=== PATIENT | female | born 1965 | race Caucasian/White ===

== ENCOUNTER 2021-11-24 05:40 | Inpatient (IN) ==
--- NOTE | 2021-11-07 11:53 | PAT Medication Instructions ---
Medication Instructions Date of Service November 07, 2021 Home Medications rosuvastatin 5 mg tablet 5 mg PO QAM multivitamin 1 tab PO QAM norethindrone acetate 1 mg-ethinyl estradiol 5 mcg tablet 1 tab PO QAM prednisone 20 mg tablet 20 mg PO UD Continue as directed prednisone 20 mg tablet 20 mg PO UD ASK your surgeon for instructions norethindrone acetate 1 mg-ethinyl estradiol 5 mcg tablet 1 tab PO QAM (continue as normal unless told otherwise by surgeon) DO NOT take the morning of surgery multivitamin 1 tab PO QAM Take morning of surgery With a small sip of water, OTHERWISE NOTHING TO EAT OR DRINK AFTER MIDNIGHT: rosuvastatin 5 mg tablet 5 mg PO QAM Other Notes If you have any questions please call us at [phone] or [phone] or [phone] or [phone]
--- NOTE | 2021-11-07 16:27 | History and Physical Report ---
DATE OF SERVICE: 11/24/2021. CHIEF COMPLAINT: Pelvic pain and pressure. Prolonged bleeding. HISTORY OF PRESENT ILLNESS: The patient is a 54-year-old nullip. Her general health is good. She i s on medicines for high cholesterol. She has problems with heavy vaginal bleeding. She had a period for well over a year where she was bleeding every 30 days including some premenstrual spotting. Her periods would last for over 7 days. She had 4-5 days of heavy bleeding where she was passing large clots, soaking over a pad an hour, was unable to leave the home because she is bleeding through her p ads and severe pressure and cramps. This has been present for over a year and getting progressively worse. She has also had pelvic pain and pressure. Severe pain with her periods, pelvic pressure and frequent urination. This has also been present and getting progressively worse for over a year. The se symptoms of pain and bleeding were evaluated with a transvaginal ultrasound, which was performed o n 05/16/2021. The uterus was 13 x 7.7 x 7.1 cm. There was a large fibroid uterus. There was no end ometrial linings seen. She had 2 distinct fibroids, one was 6.8 x 4.2 x 6.1 cm and the other fibroid was 4.7 x 4.6 x 5.0 cm. She is presently being scheduled for a total abdominal hysterectomy with pr eservation of the ovaries if possible; however, the patient has been informed if there is a small karli or on the ovaries, they will be removed, so her present preop was total abdominal hysterectomy with p reservation of both ovaries. PAST MEDICAL HISTORY: No known drug allergies. PAST SURGICAL HISTORY: She had a laser eye surgery. MEDICAL HISTORY: She is on medicine for elevated cholesterol. SOCIAL HISTORY: No smoking, no alcohol intake. She is employed. FAMILY HISTORY: Mother at age 77 of multiple myeloma. Father is 82, has end-stage Parkinson's and prostate cancer. She has one brother, age 55 in good health. REVIEW OF SYSTEMS: HEAD: No symptoms of frequent or severe headaches. EYES: No symptoms of blurred vision or double vision. EARS: No symptoms of frequent ear infection or difficulty hearing. NOSE: No symptoms of frequent nosebleeds or difficulty breathing through her nose. THROAT: No symptoms of frequent or severe sore throats or difficulty swallowing. RESPIRATORY SYSTEM: No history of asthma, chest pain, or shortness of breath. PHYSICAL EXAMINATION: GENERAL: Well-developed, well-nourished 54-year-old white female, alert, oriented x3, and cooperativ e, in no acute distress, appeared her stated age. EYES: Conjunctivae pink. Sclerae white, no evidence of jaundice. ENT: Ears had normal light reflex bilaterally. Nose had normal mucosa. Septum is midline. There w ere no polyps. Throat had no erythema or evidence of infection. Teeth are in good state of repair. HEAD: Normocephalic, normal distribution of hair. NECK: Supple. Trachea midline. Thyroid is not enlarged. There is no adenopathy appreciated. Both carotids are of good intensity. CHEST: Clear to auscultation and percussion. No wheezes, rales or rhonchi appreciated. HEART: Had regular rhythm. S1 and S2 are normal. BREASTS: Normal. ABDOMEN: Soft and nontender. Fibroid uterus was palpable abdominally up to the level of the umbilic us. PELVIC: Fibroid uterus filled the pelvis. Cervix was palpated and found to be normal and a bimanual examination revealed the upper limits of the fibroid at the level of the umbilicus. It was freely mo bile on pelvic exam. MUSCULOSKELETAL: Revealed no calf tenderness. IMPRESSION OF THIS CASE: Status post laser eye surgery, hypermenorrhea, pelvic pain, large symptomat ic fibroid uterus. Job ID: [id number]
--- NOTE | 2021-11-08 11:33 | Anesthesiology Consultation ---
Date of Service November 08, 2021 Assessment & Plan (1) Encounter for pre-operative examination: - check urine test am DOS. - assess respiratory status am DOS given recent respiratory illness, COVID negative. - Case discussed with Dr. Sapp who advised patient is acceptable risk to proceed, does not require additional evaluation or testing, to anesthesiologist assessment of respiratory status am DOS. - COVID screening: Per assessment on 11/08/2021: Travel screen negative, no known COVID-19 positive contacts or current COVID-19 related symptoms in past 2 weeks. Patient vaccinated. Surgeon arranging preop COVID testing, scheduled 11/22/2021. Awaiting results. Chart Review Chart Review: Acceptable Risk for Surgery and Patient seen in Pre Admission Testing Teaching & Discussion Pre-Anesthesia Teaching/Discussion Notes: Instructed NPO after midnight before surgery, except medications with 15 cc of water. Medication instructions provided according to the PAT guidelines. History Surgery Operation Date: 11/24/21 11:15 Proposed Procedures p Total Abdominal Hysterectomy - Uriel Nice MD Height/Weight Height: 5 ft 5 in Weight: 74.1 kg Allergies Allergy/AdvReac Type Severity Reaction Status Date / Time bee venom protein (honey bee) Allergy Severe Anaphylaxis Verified 11/06/21 09:17 Medications Home Medications Medication Instructions Recorded Confirmed Last Taken rosuvastatin 5 mg tablet 5 mg PO QAM 08/18/19 11/06/21 08/25/19 08:00 multivitamin 1 tab PO QAM 11/06/21 11/06/21 Unknown norethindrone acetate 1 mg-ethinyl 1 tab PO QAM 11/06/21 11/06/21 Unknown estradiol 5 mcg tablet prednisone 20 mg tablet 20 mg PO UD 11/06/21 11/06/21 Unknown Past Medical History Medical History Hyperlipidemia Patient denies h/o stroke, seizures, heart attack, heart failure, DM, HTN, blood clots or blood transfusions. Exercise / Class Metabolic Activity II 4-5 Yardwork/Stairs/Walk up hill (denies CP or SOB with 1 FOS) Past Family History Family History Other No family history of adverse response to anesthesia Past Surgical History Surgical History H/O eye surgery RT/LEFT LASER FOR "PRESSURE IN EYE" History of colonoscopy History of elective History of esophagogastroduodenoscopy (EGD) History of wisdom tooth extraction Past Anesthesia History No Hx of Anesthesia Complications and No Family Hx of Anesthesia Complications History of PONV No Hx of PONV and No Hx of Motion Sickness Social History Smoking Status: Former smoker tobacco type: cigarettes Do You Dip or Chew Tobacco: No Smoking End Date: QUIT OVER 20 YEARS AGO Hx Alcohol Use: No Hx Substance Use: No substance use type: does not use Review of Systems Snoring, denies witnessed apneas or sleep studies. Productive cough ongoing over past week, gradually improving. Post-nasal drip. Finishing prednisone course Rx by PCP, COVID negative. Patient denies chest pain, shortness of breath, dyspnea on exertion, fever, chills, or palpitations. Physical Exam Vital Signs Vitals BP 126/84 P 87 TEMP 99.0 SP02 98% on RA RESP 17 Physical Full cervical extension range of motion without pain Full TMJ range of motion TMD 3.5 finger breaths Mallampati Score 2 Dentition: intact, missing right lower side tooth; denies chipped or loose teeth, caps/crowns, implants or bridges Lungs: normal respiratory effort. Clear throughout to auscultation, no adventitious breath sounds Cardiac: regular rate and rhythm, no murmurs noted Carotid arteries: negative bruit bilat Lab Results Anesthesia Preop Results Results Anesthesia Widget: WBC 12.25 K/uL (4.8-10.8) H 11/08/21 Hgb 15.2 g/dL (12.0-16.0) 11/08/21 Hct 45.3 % (37-47) 11/08/21 Plt 420 K/uL (130-400) H 11/08/21 Na 137 mmol/L (136-145) 11/08/21 K 4.5 mmol/L (3.5-5.1) 11/08/21 Cl 103 mmol/L (98-107) 11/08/21 CO2 27 mmol/L (21-32) 11/08/21 BUN 13 mg/dl (6-23) 11/08/21 Creat 0.93 mg/dl (0.6-1.2) 11/08/21 Glucose Level 134 mg/dl (70-99(Fasting)) H 11/08/21 PT 10.0 Seconds (9.0-12.0) 11/08/21 PTT 24.9 Seconds (21.0-31.0) 11/08/21 INR 0.9 (0.9-1.1) 11/08/21 Blood Type B Positive 11/08/21 Antibody Screen NEGATIVE 11/08/21 Testing Electrocardiogram Date: 11/08/21 NSR, rate [address] abnormality
[2021-11-24] MEDS ORDERED: cefOXitin 2,000 MG in DEXTROSE 5% 50 ML IV SCH (06:00)
[2021-11-24] MEDS ORDERED: LR 500ML BOLUS, THEN 15ML/HR IV SCH (06:00)
[2021-11-24] MEDS ORDERED: ROCURONIUM BROMIDE 10 MG/ML 5 ML VIAL IV ONE ×2 (06:30→09:58)
[2021-11-24] MEDS ORDERED: PROPOFOL IV EMULSION 10 MG/ML 20 ML VIAL IV ONE (06:30)
[2021-11-24] MEDS ORDERED: fentaNYL citrate 100 MCG/2 ML VIAL ONE ×2 (06:31→09:58)
[2021-11-24] MEDS ORDERED: MoRPHine SULFATE PF 1 MG/ML 10 ML AMP/VIAL ONE (06:31)
[2021-11-24] MEDS ORDERED: MIDAZOLAM HCL 1 MG/ML 2ML VIAL ONE (06:31)
[2021-11-24] MEDS ORDERED: ePHEDrine sulfate 50 MG/ML AMP IV PRN ×2 (06:59→07:00)
[2021-11-24] MEDS ORDERED: ATROPINE SULFATE 0.1 MG/ML 10ML SYR IV PRN (06:59)
[2021-11-24] MEDS ORDERED: fentaNYL citrate 100 MCG/2 ML VIAL IV PRN (06:59)
[2021-11-24] MEDS ORDERED: ONDANSETRON INJ 2 MG/ML 2 ML VIAL IV PRN ×2 (06:59→07:00)
[2021-11-24] MEDS ORDERED: HYDROmorphone INJ 2 MG/ML SYR/VIAL IV PRN (06:59)
[2021-11-24] MEDS ORDERED: NALOXONE HCL 1 MG in SODIUM CHLORIDE 0.9% 1000ML 1,000 ML IV PRN (07:00)
[2021-11-24] MEDS ORDERED: LACTATED RINGER'S 500 ML IV PRN (07:00)
[2021-11-24] MEDS ORDERED: NALOXONE HCL 0.4 MG/1 ML VIAL/CARP IV PRN (07:00)
[2021-11-24] MEDS ORDERED: MoRPHine SULFATE 2 MG/ML CARP IV PRN (07:00)
[2021-11-24] MEDS ORDERED: MoRPHine SULFATE PF 1 MG/ML 10 ML AMP/VIAL INT SPINAL ONE (07:00)
[2021-11-24] MEDS ORDERED: NO NARCOTICS OR SEDATIVES SCH (07:00)
[2021-11-24] MEDS ORDERED: NALOXONE HCL 0.08 MG in SYRINGE 1.8 ML IV PRN (07:00)
[2021-11-24] MEDS ORDERED: diphenhydrAMINE 50 MG/ML VIAL IV PRN (07:00)
[2021-11-24] MEDS ORDERED: KETOROLAC 30 MG/ML VIAL IV PRN ×2 (07:00→15:32)
[2021-11-24] MEDS ORDERED: NALBUPHINE HCL INJ 10 MG/ML AMP IV PRN (07:00)
[2021-11-24] MEDS ORDERED: DC INTRASPINAL MORPHINE SCH (07:00)
[2021-11-24] MEDS ORDERED: SODIUM CHLORIDE 0.9% 1000ML 1,000 ML IV SCH (07:00)
[2021-11-24] MEDS ORDERED: BUPIVACAINE 0.5 % 5 MG/1 ML PF 10ML VIAL ONE (07:08)
--- NOTE | 2021-11-24 07:15 | History & Physical Bridge Note ---
Date of Service November 24, 2021 History & Physical Bridge Note I have examined the patient, reviewed the History & Physical and in the interval since the performance of the History & Physical I have noted the following changes of clinical significance: no changes noted
[2021-11-24] MEDS ORDERED: DEXAMETHASONE SOD INJ 4 MG/ML VIAL ONE (07:48)
[2021-11-24] MEDS ORDERED: ONDANSETRON INJ 2 MG/ML 2 ML VIAL ONE (07:48)
[2021-11-24] MEDS ORDERED: HYDROmorphone INJ 2 MG/ML SYR/VIAL ONE (07:49)
[2021-11-24] MEDS ORDERED: HEPARIN SOD (PORCINE) 1000 UNIT/ML ONE (07:52)
[2021-11-24] MEDS ORDERED: KETAMINE 50 MG/5 ML SYRINGE ONE (08:00)
[2021-11-24] MEDS ORDERED: GLYCOPYRROLATE 0.2 MG/ML VIAL ONE (08:01)
[2021-11-24] MEDS ORDERED: NEOSTIGMINE METHYLSULFATE 1 MG/ML 10ML VIAL ONE (08:01)
--- NOTE | 2021-11-24 10:42 | Post Operative Brief Note ---
Immediate Post Op Note v1 Date of Surgery November 24, 2021 Pre & Post Diagnosis Operation Date: 11/24/21 07:15 Pre-Op Diagnosis: large symptomatic fibroid uterus Post-Op Diagnosis: large symptomatic fibroid uterus I identified the patient and participated in the time-out.: Yes Procedure Operation Date: 11/24/21 07:15 Actual Procedures p Total Abdominal Hysterectomy(Not Applicable) - Uriel Nice MD Surgeon Uriel Nice MD Ice Handler none Estimated Blood Loss 200 Findings Consistent with Post-Op Diagnosis Drains Heath Catheter (16 bengali heath inserted before start of procedure by Mary Alice Small RN ) and Other Complications none Disposition Disposition: Recovery Room
--- NOTE | 2021-11-24 10:53 | XRay Report ---
KUB HISTORY: Status post surgery. Possible retained foreign body. INSTRUMENT COUNT COMPARISON: None. FINDINGS: Midline skin timbo of the lower abdomen and pelvis are noted. A radiopaque structure over lying the lower aspect of the staple line is suggestive of a surgical sponge. There is an adjacent sa fety pin. There are 4 retractor devices projecting over the abdomen and pelvis. There is an additiona l probable surgical sponge projected over the right upper thigh. Possible extraperitoneal air of the pelvis. No acute fracture. IMPRESSION: A surgical sponge projects over the midline pelvis. ACT 112: Negative or not required by law. The above report was generated using voice recognition software. It may contain grammatical, syntax o r spelling errors. Electronically signed by: Alvaro Carter M.D. 11/24/2021 10:52 AM
--- NOTE | 2021-11-24 11:51 | Anesthesiology Progress Note ---
Date of Service November 24, 2021 Anesthesia Post Procedure Vital Signs Vital Signs: Temp Pulse Pulse Resp BP Pulse Ox 11/24/21 11:45 85 13 134/79 96 11/24/21 11:35 37.3 C 76 14 124/72 97 11/24/21 11:30 87 16 132/82 96 11/24/21 11:20 91 H 12 123/77 95 11/24/21 11:10 91 H 14 107/77 97 11/24/21 11:02 36.6 C 96 H 14 126/89 97 11/24/21 06:06 37.1 C 95 H 20 155/80 H 98 Pain Intensity Abdomen: Pain Intensity: 4 Transfer of Care Handoff Completed per policy Notes Mental Status: alert / awake / arousable and participated in evaluation Patient Amnestic to Procedure: Yes Nausea / Vomiting: adequately controlled Pain: adequately controlled Airway Patency, RR, SpO2: stable & adequate BP & HR: stable & adequate Hydration State: stable & adequate Anesthetic Complications: no major complications apparent and Pt Satisfied with anesthetic care
--- NOTE | 2021-11-24 12:35 | Operative Report (OR) ---
DATE OF PROCEDURE: 11/24/2021 PROCEDURE: Total abdominal hysterectomy. INDICATIONS FOR SURGERY: Large symptomatic uterine fibroids. PREOPERATIVE DIAGNOSIS: Large symptomatic uterine fibroids. POSTOPERATIVE DIAGNOSIS: Large symptomatic uterine fibroids. PATHOLOGY: Pending. SURGEON: Tai Nice MD. TAR LEVELER: hotel assistant manager. ESTIMATED BLOOD LOSS: 200 mL. ANESTHESIA: General with spinal narcotics. DESCRIPTION OF PROCEDURE: The patient was brought to the OR table, correctly identified by cecelia rodgers nd evelio. Spinal narcotics were administered and general anesthesia. Perineum and vagina were painted with Betadine paint, draped in usual sterile fashion. Lower abdomen was painted with an alc ohol based sterilizing solution, was allowed to dry and then draped in the usual fashion. At this ti me, fibroid uterus was palpable up to the level of the umbilicus. A midline incision was made and carried down to the anterior fascia by sharp dissection. Hemostasis was secured by electrocauterization. Fascia was incised in the midline up towards the umbilicus and down to the pelvic brim. Recti muscles were carefully in the midline. Peritoneum was care fully raised and entered. The incision was then extended down to the dome of the bladder and up towa rds the umbilicus on the peritoneum. At this time, a large fibroid uterus with multiple fibroids and a lot of anatomical distortion was brought out through the incision. I brought it through an O'Conn or-O'Hooks self-retaining retractor and I used a retractor to expose the uterus, tubes, and ovarie s. I used about 6 packs to pack off the bowel. I used another blade to hold down the bladder. There was a lot of anatomical distortion in the cervix. The fibroids went down to the level of the c ervix. We first identified each round ligament and then tagged it with a chromic gut suture and then ligated it distal to that with a silk suture. This was done on both the right and left side and the round ligament was then also clamped proximally. After clamping both of the round ligaments, we cut down with electrocauterization. Made an incision above the vesicouterine fold and advanced the bladd er out of the operative field. We then started on the right side. I punched through the posterior leaf of the broad ligament and is olated the ovarian ligament and tube, clamped it close to the uterus distal, cut the adnexa off with electrocautery and then doubly ligated the stumps of the tube and ovarian ligament. First, I ligated with a transfixion suture chromic catgut, tied it and then another loop of chromic catgut distal to that for hemostasis. This was done on both the right and left side. At this time, hemostasis was go od. We then started to free up the fibroids with paying attention to the ones that were low on the cervix . We got them up to a safe position, pushed the bladder out of the operative field and then clamped the uterine vessels on both the right and left side. The uterine vessels on the right side were larg e and also went over the anterior portion of the lower cervix. I then doubly clamped the uterine ves sels on each side with a curved Nigel, cut with a stump, doubly ligated with a chromic gut suture, c auterized the ends and now I removed the fundus of the uterus and this consisted of all of the fibroi ds. I then grasped the remaining portion of the cervix with a double tooth tenaculum. We considered taking the cervix out at this time, but because of the large amount of vascularity on t he right side, which went right over the anterior portion of the cervix, we decided to leave a portio n of the cervix in. We then clamped the upper portion of the cervix with a curved Nigel on the left side, then carefully moved the vessels on the right side laterally, curved proximally. I then cut th e stumps on each side, removed the upper portion of the cervix, doubly ligated the stumps with a estate administrator antonio gut suture. We then had a wagner for the cervical os. Eventually, we were able to find that and t hen we did a continuous interlocking suture of heavy chromic catgut, which also incorporated the stum ps of the cardinal ligaments on each side into the cuff. Hemostasis was good. I did have to clamp t hat large vessel on the cervix distal to where we were working because of some bleeding and this with 1 suture created good hemostasis. We then used a Mariella drain with a safety pin, placed it into the vagina through the cervical openin g, brought down the round ligaments on either side, tied them to the stump of the cervix for support and then I reperitonealized the peritoneum on both the right and left side, tagging the ovaries up hi gh on the lateral pelvic wall, going from the right side to the center and then from the left side to the center and then tying the 2 sutures together. At this time, hemostasis was excellent. Peritone um was totally reperitonealized. We inspected all the bowels. Appendix was completely normal. We th en washed with a solution with heparin. Then, we did a careful anatomical approximation. The peritoneum was closed with a mattress suture of chromic catgut. PDS was used to close the fascia in a running fashion, PDS suture anchored at the top of the fascial defect and other one anchored at the bottom of the defect and run with wide lateral bites and tied to each other in the middle. Subc utaneous was approximated with a running plain, 4 mattress suture of nylons were used to help approxi mate the skin edges and then staple clips were used to finish the approximation. Following this, hem ostasis was good. Estimated blood loss 200 mL. Job ID: [id number]
[2021-11-24] MEDS ORDERED: MEPERIDINE HCL 50 MG/ML CARP IV PRN (15:32)
[2021-11-24] MEDS: D5W AND LACTATED RINGERS 1,000 ML IV SCH (20:20)
[2021-11-24] MEDS ORDERED: bisacodyL 5 MG TABEC PO PRN (20:33)
[2021-11-24] MEDS: DOCUSATE SODIUM 100 MG CAP PO SCH (21:46)
[2021-11-25] MEDS: D5W AND LACTATED RINGERS 1,000 ML IV SCH ×2 (01:44→08:55)
[2021-11-25] MEDS: IBUPROFEN 600 MG TAB PO PRN ×3 (03:18→12:33)
[2021-11-25] MEDS: oxyCODONE/ACETAMINOPHEN 5mg/325mg TAB PO PRN ×3 (03:19→14:14)
[2021-11-25] MEDS: DOCUSATE SODIUM 100 MG CAP PO SCH (07:38)
--- NOTE | 2021-11-25 12:05 | Obstetrical Progress Note ---
Date of Service November 25, 2021 Assessment & Plan Admission and Anticipated Discharge Date Admission Date: November 24, 2021 Subjective abdomen soft and non tender incision is clean and dry bandage removed no calf tenderness ambulating well vaginal bleeding scant hgb 15 starla drain removed Results & Data ([facility]) Vital Signs (Past 12 Hours) Vital Signs Temp Pulse Resp BP BP Pulse Ox 11/25/21 08:20 37 C 91 H 18 122/77 11/25/21 03:30 37 C 94 H 20 128/83 96 11/25/21 01:10 16 97 11/25/21 00:30 16 97
[2021-11-25 12:53] LABS: Hematocrit (blood only) 35.8 % (37-47); Hemoglobin 12.1 g/dL (12.0-16.0)
--- NOTE | 2021-11-25 16:21 | Discharge Summary (DS) ---
DATE OF DISCHARGE: 11/25/2021. The patient was admitted with a large symptomatic fibroid uterus up and to beyond the level of the um bilicus, which caused her a lot of pelvic pain and pressure and also a lot of irregular bleeding. Lilo bolton was on norethindrone 5 mg a day prior to surgery to stop the bleeding and to build up her hemoglobi n. The day of admission, she was taken to the OR where a midline incision was made due to the size of the uterus and a large fibroid uterus was removed with a moderate amount of difficulty due to anatom ical distortion of the large fibroids. Both ovaries at that time were preserved and I did leave a sm all piece of the cervix in due to a large sub-bladder varicosities. [place] drain was placed in the c ervical opening. Cervix was whipstitched open. Abdomen was reperitonealized. Postoperatively, she d id well. She remained afebrile. On her first postoperative day, she was ambulating well. She was pa ssing gas. She requested discharge. I pulled the [place] drain out. Checked she had no calf tendern ess. I removed the bandage. Incision was clean and dry. I talked to her about the usual postoperat dedrick instructions, called her in a prescription for Percocet and also gave her prescription for estrad iol 2 mg tablets. She was instructed to return to the office in about 4 days for removal of the reten tion sutures. Job ID: [id number]
== END 2021-11-25 15:06 | disposition home or self-care (01) | DRG 743 ==
LOC: ASU 05:40 → 4E1 10:49

== ENCOUNTER 2021-11-25 19:39 | Observation (INO) ==
[2021-11-25] MEDS ORDERED: oxyCODONE/ACETAMINOPHEN 5mg/325mg TAB PO PRN (19:52)
[2021-11-25] MEDS: LACTATED RINGER'S 1,000 ML IV SCH (19:56)
[2021-11-25] MEDS: ONDANSETRON INJ 2 MG/ML 2 ML VIAL IV PRN (19:58)
[2021-11-25] MEDS ORDERED: LACTATED RINGER'S 1,000 ML IV SCH (20:00)
[2021-11-25] MEDS: MEPERIDINE HCL 50 MG/ML CARP IV PRN (20:10)
[2021-11-25 20:13] LABS: Hematocrit (blood only) 36.5 % (37-47); Hemoglobin 12.5 g/dL (12.0-16.0)
--- NOTE | 2021-11-25 20:47 | History and Physical Report ---
DATE OF SERVICE: 11/25/2021 HISTORY OF PRESENT ILLNESS: She was admitted with nausea and vomiting. A 56-year-old nullip. [facility] al health is good. She is on meds for high blood pressure. She had hysterectomy on Saturday for sympt oms of heavy vaginal bleeding, pelvic pain and pressure. She had a large multifibroid uterus removed at that time through a midline abdominal incision. Postoperatively, she did well. Her postoperativ e hemoglobin was 12.0 and bleeding at the time of surgery was estimated to be about 200 mL. On her f irst postoperative day, which was Saturday, she was doing well and requested early discharge. A Penr ose drain was removed from the vagina. Her hemoglobin was checked. She was passing small amounts of gas and she was discharged on pain medication and estrogen replacement. She called then in the afte rnoon and said that after she got home, she started to experience projectile vomiting and a lot of na usea. She was readmitted to the hospital for IV fluids. ALLERGIES: No known drug allergies. PAST SURGICAL HISTORY: She had laser eye surgery. PAST MEDICAL HISTORY: She is on meds for elevated blood pressure. SOCIAL HISTORY: No smoking, no alcohol intake. She is employed. FAMILY HISTORY: Mother at 77 of multiple myeloma. Father is 82, has end-stage Parkinson's dise ase and prostate cancer. One brother at age 55 in good health. REVIEW OF SYSTEMS: HEAD: No symptoms of frequent or severe headaches. EYES: No symptoms of blurred vision or double vision. EARS: No symptoms of frequent ear infection or difficulty hearing. NOSE: No symptoms of frequent nosebleeds or difficulty breathing through her nose. PHYSICAL EXAMINATION: GENERAL: Well-developed, well-nourished female in moderate amount of distress. HEART: Had regular rhythm. S1 and S2 are normal. LUNGS: Clear to auscultation and percussion. CHEST: Clear to auscultation and percussion. ABDOMEN: Abdominal incision looked clean and dry. Abdomen was mildly distended. There was some mil d tenderness. Bowel sounds were hypoactive. PELVIS: Vaginal bleeding was minimal. EXTREMITIES: There was no calf tenderness. IMPRESSION OF THIS CASE: Ileus, status post hysterectomy for fibroids. Job ID: [id number]
[2021-11-25] MEDS: KETOROLAC 30 MG/ML VIAL IV PRN (21:42)
[2021-11-26] MEDS: ONDANSETRON INJ 2 MG/ML 2 ML VIAL IV PRN ×5 (00:02→22:10)
[2021-11-26] MEDS: MEPERIDINE HCL 50 MG/ML CARP IV PRN ×5 (00:02→22:10)
[2021-11-26] MEDS: LACTATED RINGER'S 1,000 ML IV SCH ×4 (03:30→21:33)
[2021-11-26] MEDS: KETOROLAC 30 MG/ML VIAL IV PRN (06:28)
[2021-11-26] MEDS: SIMETHICONE 80 MG CHEW PO SCH ×4 (07:48→20:49)
[2021-11-26] MEDS: DOCUSATE SODIUM 100 MG CAP PO SCH ×2 (11:10→20:49)
--- NOTE | 2021-11-26 11:38 | Obstetrical Progress Note ---
Date of Service November 26, 2021 Assessment & Plan Admission and Anticipated Discharge Date Admission Date: November 25, 2021 Subjective abdomen distended bowel sounds present hypoactive afebrile no calf tenderness vaginal bleeding scant Results & Data ([facility]) Vital Signs (Past 12 Hours) Vital Signs Temp Pulse Resp BP Pulse Ox 11/26/21 11:08 36.7 C 98 H 18 123/79 95 11/26/21 08:00 36.8 C 100 H 18 126/83 96 11/26/21 03:35 36.7 C 88 18 112/73
[2021-11-26 11:58] LABS: Basophils # (auto) 0.01 K/uL (0-0.2); Basophils % (auto) 0.1 %; Eosinophils # (auto) 0.22 K/uL (0-0.5); Eosinophils % (auto) 2.5 %; Hematocrit (blood only) 34.8 % (37-47); Hemoglobin 11.4 g/dL (12.0-16.0); Immature Granulocytes # (auto) 0.01 K/uL (0.00-0.02); Immature Granulocytes % (auto) 0.1 %; Lymphocytes % (auto) 18.1 %; Mean Corpuscular Hemoglobin 29.8 pg (25-34); Mean Corpuscular Hgb Conc 32.8 g/dL (32-36); Mean Corpuscular Volume 91.1 fL (80-100); Mean Platelet Volume 9.4 fL (7.4-10.4); Monocytes # (auto) 0.47 K/uL (0.11-0.59); Monocytes % (auto) 5.3 %; Neutrophils # (auto) 6.55 K/uL (1.4-6.5); Neutrophils % (auto) 73.9 %; Platelet Count 278 K/uL (130-400); RDW Coefficient of Variation 12.9 % (11.5-14.5); RDW Standard Deviation 43.1 fL (36.4-46.3); Red Blood Count 3.82 M/uL (4.2-5.4); White Blood Count 8.86 K/uL (4.8-10.8)
[2021-11-26 12:23] LABS: BUN Creatinine Ratio 9.5 (10-20); Calcium 8.6 mg/dl (8.5-10.1); Creatinine Clr Calc Pharmacy 76.7 ml/min; Est GFR (African American) 91.3 ml/min; Est GFR (Non-African American) 78.8 ml/min
--- NOTE | 2021-11-26 12:38 | XRay Report ---
KUB HISTORY: Recent hysterectomy. Abdominal distention. possible ileus COMPARISON: KUB 11/24/2021. FINDINGS: Midline skin timbo seen within the lower pelvis status post hysterectomy. Gas within the bladder lumen which could be due to prior catheterization. There is small amount of gas within the ex traperitoneal space of the deep pelvis which has improved also suggesting postoperative change. There are multiple dilated gas-filled loops of large and small bowel seen throughout the abdomen containin g small fluid levels. Gas is seen within the nondistended sigmoid colon. Therefore, these findings fa vor a postoperative ileus at this time. A distal large bowel obstruction is considered less likely bu t not entirely excluded. Continued follow-up recommended. The stomach is also moderately distended an d filled with gas and fluid. No renal calculi. No ureteral calculi. No pneumoperitoneum or pneumatos is. IMPRESSION: Status post hysterectomy. Dilated gas-filled loops of large and small bowel have progressed and conta in small fluid levels. This favors a postoperative ileus. A distal large bowel obstruction is conside red less likely but not entirely excluded. ACT 112: Negative or not required by law. Electronically signed by: Edwin Connelly M.D. 11/26/2021 12:36 PM
[2021-11-27] MEDS: KETOROLAC 30 MG/ML VIAL IV PRN (01:38)
[2021-11-27] MEDS: MEPERIDINE HCL 50 MG/ML CARP IV PRN (02:20)
[2021-11-27] MEDS: ONDANSETRON INJ 2 MG/ML 2 ML VIAL IV PRN (02:21)
[2021-11-27] MEDS: LACTATED RINGER'S 1,000 ML IV SCH ×2 (02:29→07:36)
--- NOTE | 2021-11-27 09:02 | Obstetrical Progress Note ---
Date of Service November 27, 2021 Assessment & Plan Admission and Anticipated Discharge Date Admission Date: November 25, 2021 Subjective abdomen soft and non tender bowel sounds are normal no calf tenderness passing flatus ambulating well hgb 11.4 Results & Data ([facility]) Vital Signs (Past 12 Hours) Vital Signs Temp Pulse Resp BP Pulse Ox 11/27/21 07:30 36.7 C 96 H 18 118/70 96
[2021-11-27] MEDS: IBUPROFEN 600 MG TAB PO PRN ×4 (09:12→22:28)
[2021-11-27] MEDS: SIMETHICONE 80 MG CHEW PO SCH ×4 (09:12→20:42)
[2021-11-27] MEDS: DOCUSATE SODIUM 100 MG CAP PO SCH ×2 (12:13→20:42)
[2021-11-28] MEDS: ONDANSETRON INJ 2 MG/ML 2 ML VIAL IV PRN (00:16)
[2021-11-28] MEDS: IBUPROFEN 600 MG TAB PO PRN ×2 (05:36→11:11)
[2021-11-28] MEDS: DOCUSATE SODIUM 100 MG CAP PO SCH (08:21)
[2021-11-28] MEDS: SIMETHICONE 80 MG CHEW PO SCH ×2 (08:21→12:44)
--- NOTE | 2021-11-28 09:01 | Obstetrical Progress Note ---
Date of Service November 28, 2021 Assessment & Plan Admission and Anticipated Discharge Date Admission Date: November 25, 2021 Subjective abdomen soft and non tender bowel sounds are normal passing flatus retention sutures removed no calf tenderness ambulating well hgb 11.4 Results & Data ([facility]) Vital Signs (Past 12 Hours) Vital Signs Temp Pulse Resp BP Pulse Ox 11/28/21 05:40 36.7 C 94 H 18 130/81 93 11/27/21 23:14 36.9 C 97 H 16 136/91 94
[2021-11-28 09:13] VITALS: BP 112/77; PULSE 84; TEMP 98.2; O2SAT 96
--- NOTE | 2021-11-28 11:46 | Discharge Summary (DS) ---
HOSPITAL COURSE: Mrs. Ulrich had been admitted for total abdominal hysterectomy for large symptom atic fibroid uterus, it had been removed through a midline incision. Bleeding was minimal. Postop h emoglobin was good. On the first postoperative day, she requested early discharge. At that time, ronny bolton was ambulating well. She was passing some gas and I removed the Cammal drain from the vaginal cuf f and sent her home. She called later that afternoon with projectile vomiting and abdominal distenti on. She was then readmitted the same day that she was discharged in the afternoon with postoperative ileus. Diagnoses was confirmed by flat plate of the abdomen, which showed air fluid levels. She wa s treated with IV fluids. We checked her electrolytes. She was placed on n.p.o. status and over the next day or so, her bowels began to move, her bowel sounds slowly improved. She did have some bowel sounds when she was admitted, but they were high pitched and indicative of ileus. Her bowel sounds improved. She began to diurese, put out a lot of urine. At the time of discharge, she was ambulating well, eating well, passing gas, tolerating a diet. Her bowel sounds had returned to normal. Her ab domen was much less tender. Incision was clean and dry. The retention sutures were removed and she was sent home with her usual instructions, to return to the office for removal of some of the timbo and she was also at this time given a prescription for Zofran. Job ID: [id number]
== END 2021-11-28 13:00 | disposition home or self-care (01) ==
LOC: OPB 19:39 → 4E1 19:43 → INTOOBSV 19:52